=== PATIENT | male | born 1960 | race Caucasian/White ===

== ENCOUNTER 2017-07-30 00:56 | Emergency (ER) | payer MEDICAID ==
[~2017-07-30] VITALS: Ht 165.1 cm; Wt 63.5 kg
[2017-07-30 01:15] VITALS: BP 113/72
[2017-07-30] MEDS ORDERED: Levofloxacin 500mg tab ORAL ONE (02:00)
[2017-07-30] MEDS ORDERED: LEVAQUIN500 MG ORAL (02:11)
--- NOTE | 2017-07-30 02:11 | Emergency Room Report ---
History of Present Illness General Chief Complaint: General Complaint Source: Patient Present Illness HPI This is a 56-year-old male with a history of cirrhosis with ascites. He had recent paracentesis 5 days ago. Because of his ascites he has an umbilical hernia. He presents with chief complaint of leaking from his umbilical hernia. He said this is an he had copious amount of peritoneal fluid leaking out. He said that he lost about is liters of ascites. No trauma. Does have lower extremity cramping. This occur after each paracentesis. No other complaint. No fever chills been no nausea no vomiting. Allergies: Coded Allergies: No Known Allergies (Unverified , 07/30/17) Patient History Past Medical History: see triage record, old chart reviewed Past Surgical History: other Pertinent Family History: none Social History: Reports: alcohol use - history of alcoholism, Denies: smoking Immunizations: UTD, other Reviewed Nursing Documentation: PMH: Agreed, PSxH: Agreed Review of Systems Eye: Denies: eye pain, blurred vision ENT: Denies: ear pain, nose congestion, throat swelling Respiratory: Denies: cough, shortness of breath Cardiovascular: Denies: chest pain, palpitations Gastrointestinal: Denies: abdominal pain, diarrhea, nausea, vomiting Musculoskeletal: Denies: back pain, joint pain Skin: Denies: rash Neurological: Denies: headache, numbness Endocrine: Denies: increased thirst, increased urine Hematologic/Lymphatic: Denies: easy bruising All Other Systems: negative except mentioned in HPI Physical Exam Vital Signs Date Time Temp Pulse Resp B/P (MAP) Pulse Ox O2 Delivery O2 Flow Rate FiO2 07/30/17 01:02 97.9 86 18 114/71 98 Room Air vitals normal Sp02 EP Interpretation: reviewed, normal General Appearance: no apparent distress, alert, Chronically Ill Head: normocephalic, atraumatic Eyes: bilateral eye PERRL, bilateral eye EOMI ENT: hearing grossly normal, normal pharynx Neck: full range of motion, supple, no meningismus Respiratory: chest non-tender, lungs clear, normal breath sounds Cardiovascular #1: regular rate, rhythm, no murmur Gastrointestinal: normal bowel sounds, non tender, no mass, no organomegaly, no bruit, non-distended, other - Umbilical hernia: There is necrotic tissue where the umbilicus was. There is a 3 mm hole with his ascites leakage. No fever or chills. No redness. Musculoskeletal: back normal, gait/station normal, normal range of motion Psychiatric: mood/affect normal Skin: warm/dry Procedures Laceration/Wound Repair Laceration/Wound Repair : Consent: Verbal Wound Location: abdomen Wound Length (cm): 2 Irrigated w/ Saline (ccs): 500 Betadine Prep?: Yes Anesthesia: 1% Lidocaine Volume Anesthetic (ccs): 5 Wound Debrided: minimal Wound Repaired With: sutures Suture Size/Type: 3:0, proline Number of Sutures: 5 Patient Tolerated: Well Complications: None Progress Area clean with chlorhexidine and Betadine. Local anesthetic with 1% lidocaine without epinephrine injected. I removed the eschar/necrotic tissue. I closed the wound with 5 interrupted 3-0 Prolene suture. Patient tolerated seizure without a problem. No more leaking. Medical Decision Making Diagnostic Impression: Primary Impression: Umbilical hernia Qualified Codes: K42.9 - Umbilical hernia without obstruction or gangrene ER Course Patient with ascites leaking from his umbilical hernia. No evidence of infection. High risk for bleeding infection. We'll put on antibiotics. We'll discharge home. Last Vital Signs Date Time Temp Pulse Resp B/P (MAP) Pulse Ox O2 Delivery O2 Flow Rate FiO2 07/30/17 01:02 97.9 86 18 114/71 98 Room Air Status: improved Disposition: HOME, SELF-CARE Condition: Stable Scripts Levofloxacin* (LEVAQUIN*) 500 Mg Tablet 500 MG ORAL DAILY, #7 TAB Prov: JUANIS RAPHAEL M.D. 07/30/17 Additional Instructions: Keep wound clean. Followup with your DrFadia for suture removal in 7-10 days. Return if symptom worsen. JUANIS RAPHAEL M.D. Jul 30, 2017 02:11
[2017-07-30] MEDS ORDERED: traMADol 50mg tab ORAL ONE (02:15)
[2017-07-30 02:21] VITALS: BP 113/72
== END 2017-07-30 02:21 | disposition home or self-care (01) ==
LOC: EDBD 00:56 → EMR 01:15
DX: K42.9 Umbilical hernia without obstruction or gangrene (principal); S31.105A Unspecified open wound of abdominal wall, periumbilic region without penetration into peritoneal cavity, initial encounter; X58.XXXA Exposure to other specified factors, initial encounter; R18.8 Other ascites; Y92.89 Other specified places as the place of occurrence of the external cause; K74.60 Unspecified cirrhosis of liver
CPT/HCPCS: 12001; 99283; Z7502